=== PATIENT | male | born 1945 | race Caucasian/White ===

== ENCOUNTER 2020-02-03 06:42 | Day surgery (SDC) | payer MEDICARE ==
[2020-01-31 11:20] VITALS: BP 185/86
[2020-01-31 14:16] LABS: INR 1.06 (0.85-1.15); PARTIAL THROMBOPLASTIN TIME 28.3 SEC (26.3-35.5); PROTHROMBIN TIME 11.4 SEC (9.6-11.6)
[2020-01-31 14:22] LABS: APPEARANCE,URINE Clear (CLEAR); BILIRUBIN,URINE Negative (NEGATIVE); COLOR,URINE Yellow (YELLOW); GLUCOSE, URINE (UA) Negative (NEGATIVE); KETONES,URINE Negative (NEGATIVE); LEUKOCYTE ESTERASE ,URINE Trace (NEGATIVE); NITRATE,URINE Negative (NEGATIVE); OCCULT BLOOD,URINE Negative (NEGATIVE); PH,URINE 5.5 (5.0-8.0); PROTEIN,URINE POS 1+ mg/dL (NEGATIVE); UROBILINOGEN,URINE 0.2 mg/dL (0.2-1.0)
[2020-01-31 14:34] LABS: RBC,URINE 0-1 /HPF (0-1)
[2020-01-31 14:35] LABS: BACTERIA,URINE Rare /HPF (None Seen); SQUAMOUS EPITHELIAL CELL,UR Rare /HPF (0-2)
--- NOTE | 2020-02-02 11:54 | NUR ---
RE: ABNORMAL EKG REPORTED ABNORMAL EKG TO DR ALBRECHT. NO NEW ORDERS, OK TO PROCEED WITH PROCEDURE.
[2020-02-03] VITALS (18 sets, daily range): BP systolic 131–184; BP diastolic 66–119
[~2020-02-03] VITALS: Ht 177.8 cm; Wt 81.6 kg
[~2020-02-03 06:42] MED LIST: ADVAIR DISKUS PO; APIX5TAB PO; ASPI-556 PO; ATOR40TA69 PO; CO Q-10 PO; DIGO125T71 PO; DILT360C32 PO; FIBER CAPSULE PO; FISH1CAP50 PO; FURO40TA5 PO; INSU100I3 SQ; INSU3INS3 SQ; ISOS30TA6 PO; MVIT PO; POTA-9 PO; TAMS-1 PO
[2020-02-03] MEDS ORDERED: SODIUM CHLORIDE 0.9% 1000ML 1,000 ML IV ONE (07:58)
[2020-02-03] MEDS: CEFTRIAXONE SODIUM 1 GM ONE ×2 (08:07→08:45)
[2020-02-03] MEDS ORDERED: GENTAMICIN SULFATE 320 MG in SODIUM CHLORIDE 0.9% 100 ML IV SCH (08:30)
[2020-02-03] MEDS ORDERED: LIDOCAINE PF 2% 5ML ABBOJECT ONE (08:33)
[2020-02-03] MEDS ORDERED: GLYCOPYRROLATE 1 MG/5 ML SYRINGE ONE (08:33)
[2020-02-03] MEDS ORDERED: DEXAMETHASONE SOD PHOSPHATE 10MG/ML 1ML VIAL ONE (08:33)
[2020-02-03] MEDS ORDERED: ONDANSETRON HCL 4 MG/2 ML VIAL ONE (08:33)
[2020-02-03] MEDS ORDERED: MIDAZOLAM HCL 1 MG/ML 2ML VIAL ONE (08:33)
[2020-02-03] MEDS ORDERED: SUCCINYLCHOLINE 200MG/10ML SYR ONE (08:33)
[2020-02-03] MEDS ORDERED: PROPOFOL 10 MG/ML 20ML VIAL IV ONE (08:34)
[2020-02-03] MEDS ORDERED: ATROPINE SULFATE 0.1 MG/ML 10 ML SYG IVP ONE (08:34)
[2020-02-03] MEDS ORDERED: NEOSTIGMINE 5MG/5ML SYR IV ONE (08:34)
[2020-02-03] MEDS ORDERED: ROCURONIUM 10MG/1ML SYR 10 MG/ML ML ONE ×2 (08:34→09:35)
[2020-02-03] MEDS ORDERED: FENTANYL CITRATE PF 50 MCG/1 ML 2ML VIAL ONE (08:34)
[2020-02-03] MEDS ORDERED: MEPERIDINE-PF 25 MG/ML SYG ONE (10:43)
--- NOTE | 2020-02-03 13:07 | NUR ---
CALLED SPOKE TO DOCTOR ALBRECHT TO MAKE SURE OKAY TO DISCHARGE PATIENT, PT STABLE BUT REPORTS HE CAN NOT SWALLOW AND THROAT HURTS. CONTINUED TO EVALUATE PATIENT NO DECREASE IN OXYGEN LEVEL AND ABNORMAL LABORED BREATHING NOTED. ADVISED PATIENT IF IT GETS WORSE TO COME TO EMERGENCY ROOM.
== END 2020-02-03 13:15 | disposition home or self-care (01) ==
LOC: DAH 06:42
PROVIDERS: ATTEND Urology
DX: N40.1 Benign prostatic hyperplasia with lower urinary tract symptoms (principal); I48.91 Unspecified atrial fibrillation; I25.10 Atherosclerotic heart disease of native coronary artery without angina pectoris; M19.90 Unspecified osteoarthritis, unspecified site; E11.22 Type 2 diabetes mellitus with diabetic chronic kidney disease; I12.9 Hypertensive chronic kidney disease with stage 1 through stage 4 chronic kidney disease, or unspecified chronic kidney disease; N18.9 Chronic kidney disease, unspecified; I45.10 Unspecified right bundle-branch block; Z11.59 Encounter for screening for other viral diseases
CPT/HCPCS: 36415; 52648; 71045; 81001; 82948 ×2; 85610; 85730; 87088; 88305; 93005; A4213; A4215; A4221; A4222; A4223 ×2; A4354; A4600; A4663; A6260; J0330; J0461; J0696; J1100; J1580; J2001; J2175; J2250; J2405; J2704; J2710; J3010; J3490; J7030 ×3; U0003

== ENCOUNTER 2023-07-03 06:49 | Day surgery (SDC) | payer MEDICARE ==
[2023-06-30 12:54] LABS: BASOPHILS # (AUTO) 0.03 K/uL (0.00-0.20); BASOPHILS % (AUTO) 0.4 % (0.0-5.0); EOSINOPHILS # (AUTO) 0.25 K/uL (0.00-0.70); EOSINOPHILS % (AUTO) 3.3 % (0.0-8.0); IMMATURE GRANULOCYTE ABSOLUTE 0.04 K/uL (0-1); LYMPHOCYTES # (AUTO) 0.9 K/uL (1.0-4.8); LYMPHOCYTES % (AUTO) 12.4 % (21.0-51.0); MEAN CORPUSCULAR HEMOGLOBIN 32.3 pg (27.0-33.0); MEAN CORPUSCULAR HGB CONC 33.1 g/dL (32.0-36.0); MEAN CORPUSCULAR VOLUME 97.4 fL (79-99); MONOCYTES # (AUTO) 0.9 K/uL (0.1-1.0); MONOCYTES % (AUTO) 11.8 % (3.0-13.0); NEUTROPHILS # (AUTO) 5.3 K/uL (1.8-7.7); NEUTROPHILS % (AUTO) 71.6 % (40.0-77.0); PLATELET COUNT (AUTO) 254 K/uL (130-400); RED BLOOD CELL COUNT(AUTO) 4.31 MIL/uL (4.50-6.20); RED CELL DISTRIBUTION WIDTH 14.2 % (11.0-15.5); WHITE BLOOD COUNT (AUTO) 7.5 K/uL (4.8-10.8)
[2023-06-30 12:56] VITALS: BP 150/90; PULSE 95; RESP 15
[2023-06-30 13:01] LABS: APPEARANCE,URINE CLOUDY (CLEAR); BILIRUBIN,URINE NEGATIVE (NEGATIVE); COLOR,URINE LIGHT-BROWN (YELLOW); CREATININE 1.8 mg/dL (0.5-1.5); GLUCOSE, URINE (UA) NEGATIVE (NEGATIVE); KETONES,URINE NEGATIVE (NEGATIVE); LEUKOCYTE ESTERASE ,URINE 75 Leu/uL (NEGATIVE); NITRATE,URINE NEGATIVE (NEGATIVE); OCCULT BLOOD,URINE LARGE (NEGATIVE); PROTEIN,URINE 50 mg/dL (NEGATIVE); UROBILINOGEN,URINE 0.2 mg/dL (0.2-1.0)
[2023-06-30 13:05] LABS: INR 0.98 (0.85-1.15); PROTHROMBIN TIME 11.4 SEC (9.6-11.6)
[2023-06-30 13:06] LABS: ADD UA MICROSCOPIC YES; PARTIAL THROMBOPLASTIN TIME 30.7 SEC (26.3-35.5)
[2023-06-30 13:08] LABS: BACTERIA,URINE FEW /HPF (None Seen); MUCUS,URINE RARE LPF (None Seen); RBC,URINE TNTC /HPF (0-1); TRANSITIONAL EPI CELLS,URINE RARE /HPF (None Seen); UNCLASSIFIED CRYSTAL 11 /HPF (None Seen)
[2023-07-03] VITALS (18 sets, daily range): BP systolic 137–185; BP diastolic 65–92; PULSE 56–110; RESP 10–18
[~2023-07-03] VITALS: Ht 177.8 cm; Wt 75.6 kg
[~2023-07-03 06:49] MED LIST changes: +ACYC200C24 PO; +ADV250 IH; -ADVAIR DISKUS PO; +ALBU18HF7 IH; -ASPI-556 PO; -CO Q-10 PO; -DILT360C32 PO; +DILT360T14 PO; -FIBER CAPSULE PO; -FISH1CAP50 PO; +INSU100C6 SQ; -INSU100I3 SQ; +INSU100V37 SQ; -INSU3INS3 SQ; -ISOS30TA6 PO; +ISOS60TA77 PO; +MITOMYCIN 40 MG SYR.W..INJ IRRIG ONE; +MULT-1367 PO; -MVIT PO; -POTA-9 PO; +POTA10CA85 PO; -TAMS-1 PO
[2023-07-03] MEDS ORDERED: 0.9%NACL 1000ML 1,000 ML IV ONE (07:40)
[2023-07-03] MEDS: CEFTRIAXONE 1G VIAL ONE ×2 (07:45→08:49)
[2023-07-03] MEDS ORDERED: IOHEXOL-350 50ML VIAL IV ONE (08:17)
[2023-07-03] MEDS ORDERED: SUCCINYLCHOLINE 200MG/10ML SYR ONE (08:42)
[2023-07-03] MEDS ORDERED: DEXAMETHASONE SOD PHOSPHATE 10MG/ML 1ML VIAL ONE (08:42)
[2023-07-03] MEDS ORDERED: LIDOCAINE PF 100MG/5ML (2%) SYRINGE 5ML ONE (08:42)
[2023-07-03] MEDS ORDERED: NEOSTIGMINE 5MG/5ML SYR IV ONE (08:42)
[2023-07-03] MEDS ORDERED: ONDANSETRON 4MG INJ ONE (08:42)
[2023-07-03] MEDS ORDERED: PROPOFOL 10 MG/ML 20ML VIAL IV ONE (08:42)
[2023-07-03] MEDS ORDERED: MIDAZOLAM HCL 1 MG/ML 2ML VIAL ONE (08:42)
[2023-07-03] MEDS ORDERED: GLYCOPYRROLATE 1 MG/5 ML SYRINGE ONE (08:42)
[2023-07-03] MEDS ORDERED: ROCURONIUM 10MG/1ML SYR 10 MG/ML ML ONE ×2 (08:43→09:12)
[2023-07-03] MEDS ORDERED: FENTANYL CITRATE PF 50 MCG/1 ML 2ML VIAL ONE ×2 (08:43→09:43)
[2023-07-03] MEDS ORDERED: MINERAL OIL 30 ML UDCUP ONE (09:24)
[2023-07-03] MEDS ORDERED: HYDRALAZINE 20MG/ML VIAL ONE (10:16)
[2023-07-03] MEDS ORDERED: DILTIAZEM 25MG INJ IVP ONE (11:00)
== END 2023-07-03 11:56 | disposition home or self-care (01) ==
LOC: DAH 06:49
PROVIDERS: ATTEND Urology
DX: C67.4 Malignant neoplasm of posterior wall of bladder (principal); R31.0 Gross hematuria; I25.2 Old myocardial infarction; I12.9 Hypertensive chronic kidney disease with stage 1 through stage 4 chronic kidney disease, or unspecified chronic kidney disease; E11.22 Type 2 diabetes mellitus with diabetic chronic kidney disease; N18.9 Chronic kidney disease, unspecified; E11.51 Type 2 diabetes mellitus with diabetic peripheral angiopathy without gangrene; M19.90 Unspecified osteoarthritis, unspecified site; K21.9 Gastro-esophageal reflux disease without esophagitis; I45.10 Unspecified right bundle-branch block; Z95.5 Presence of coronary angioplasty implant and graft; Z79.01 Long term (current) use of anticoagulants; Z79.899 Other long term (current) drug therapy
CPT/HCPCS: 80048; 85025; 85610; 85730; 87088; 81001; 36415; 71045; 93005; 52235; 82948; 88305; 74420; 51720; A6260; A4663; J7030 ×2; A4344; A4354; C1758; J3010 ×2; J0330; J3490 ×2; J1100; J2710; J2001; J0360; J0696; J2250; J2704; J2405; Q9967; A4358; C1769 ×2; A4215; A4223; A4222; A4221; J9280 ×2; A4600